=== PATIENT | female | born 1970 | race Caucasian/White ===

== ENCOUNTER 2016-07-05 13:27 | Emergency (ER) | payer MEDICAID ==
[~2016-07-05] VITALS: Ht 154.9 cm; Wt 84.3 kg
[~2016-07-05 13:27] MED LIST: ALPR-475 PO; BUPR100T6 PO; DIVA500T2 PO; METF500T PO; QUET400T4 PO; TOPI200T25 PO
[2016-07-05 13:38] VITALS: BP 129/81
[2016-07-05] MEDS ORDERED: ONDANSETRON ODT 4 MG ONE (13:59)
[2016-07-05] MEDS ORDERED: ONDANSETRON ODT 4 MG PO ONE (14:00)
== END 2016-07-05 15:36 | disposition home or self-care (01) ==
LOC: ED 15:10
DX: Z76.0 Encounter for issue of repeat prescription (principal); F31.9 Bipolar disorder, unspecified; E11.9 Type 2 diabetes mellitus without complications
CPT/HCPCS: 99283; Q0162

== ENCOUNTER 2016-10-03 19:24 | Emergency (ER) | payer SELFPAY ==
[~2016-10-03] VITALS: Ht 157.5 cm; Wt 84.8 kg
[2016-10-03 19:25] VITALS: BP 116/80
[2016-10-03] MEDS ORDERED: ATOR40TA78 PO (19:45)
[2016-10-03] MEDS ORDERED: GEMF600T PO (19:45)
[2016-10-03] MEDS ORDERED: HYDROcodone/APAP 5/325 TABLET ONE (20:10)
[2016-10-03] MEDS ORDERED: HYDROcodone/APAP 5/325 TABLET PO ONE (20:30)
== END 2016-10-03 20:48 | disposition home or self-care (01) ==
LOC: ED 20:38
DX: K02.9 Dental caries, unspecified (principal); E78.5 Hyperlipidemia, unspecified; E11.9 Type 2 diabetes mellitus without complications; Z88.1 Allergy status to other antibiotic agents
CPT/HCPCS: 99283